=== PATIENT | female | born 1960 | race Caucasian/White ===

== ENCOUNTER → 2018-05-27 | Outpatient (CLI) | payer BC ==
--- NOTE | 2018-05-28 19:36 | BD ---
EXAMINATION TYPE: Axial Bone Density DATE OF EXAM: 05/27/2018 COMPARISON: NONE CLINICAL HISTORY: Height: 64 Weight: 204.6 FRAX RISK QUESTIONS: Alcohol (3 or more units per day): no Family History (Parent hip fracture): no Glucocorticoids (More than 3mos): no (Ex: prednisone, prednisolone, methylprednisolone, dexamethasone, and hydrocortisone). History of Fracture in Adulthood: no Secondary Osteoporosis: 1. Type 1 Diabetes: no 2. Hyperthyroidism: no 3. Menopause before 45: no 4. Malnutrition: no 5. Chronic liver disease: no Rheumatoid Arthritis: no Current Tobacco Use: no RISK FACTORS HISTORY OF: Family History of Osteoporosis: no Active: yes Diet low in dairy products/other sources of calcium: yes Postmenopausal woman: age 48 hysterectomy Lost more than 2 inches in height since high school: no MEDICATIONS: losartan, potassium chloride, vit d Additional History: EXAM MEASUREMENTS: Bone mineral densitometry was performed using the [employer] System. Bone mineral density as measured about the Lumbar spine is: ----- L1-L4(G/cm2): 1.022 T Score Values are as follows: ----- L2: -1.4 ----- L3: -1.1 ----- L4: -1.6 ----- L1-L4: -1.3 Bone mineral density : baseline Bone mineral density about the R hip (g/cm2): 0.947 Bone mineral density about the L hip (g/cm2): 0.904 T Score values are as follows: -----R Neck: -0.7 -----L Neck: -1.0 -----R Total: -0.7 -----L Total: -0.9 Bone mineral density : baseline IMPRESSION: Osteopenia (T Score between -2.5 and -1). There is slightly increased risk of fracture and the patient may be considered for treatment. Re-Screen 2-5 years. NOTE: T-SCORE=SD OF THE YOUNG ADULT MEAN.
--- NOTE | 2018-05-31 11:35 | MM ---
Reason for exam: screening (asymptomatic). Last mammogram was performed 14 years and 5 months ago. History: Patient is postmenopausal. Took hormonal contraceptives for 5 years. Physical Findings: A clinical breast exam by your physician is recommended on an annual basis and results should be correlated with mammographic findings. MG 3D Screening Mammo W/Cad Bilateral CC and MLO view(s) were taken. No prior studies available for comparison. The breast tissue is heterogeneously dense. This may lower the sensitivity of mammography. There is chronic nodularity bilaterally. There is no dominant lesion. ASSESSMENT: Benign, BI-RAD 2 RECOMMENDATION: Routine screening mammogram of both breasts in 1 year.
== END | disposition home or self-care (01) ==
LOC: RADMAMWWP 15:03
PROVIDERS: ATTEND Family Medicine
DX: Z12.31 Encounter for screening mammogram for malignant neoplasm of breast (principal); M85.89 Other specified disorders of bone density and structure, multiple sites
CPT/HCPCS: 77063; 77067; 77080